=== PATIENT | male | born 1960 | race Caucasian/White ===

== ENCOUNTER 2023-11-12 10:54 | Emergency (ER) | payer OTHER ==
[2023-11-12 11:00] VITALS: BP 151/66; PULSE 77; RESP 16; TEMP 97.6; BMI 24.1
[2023-11-12] MEDS ORDERED: predniSONE 20 MG TABLET (UD) ONE (12:24)
[2023-11-12] MEDS ORDERED: ACETAMINOPHEN 325 MG TABLET (FP) ONE (12:24)
[2023-11-12] MEDS: predniSONE 20 MG TABLET (UD) PO ONE (12:32)
[2023-11-12] MEDS: ACETAMINOPHEN 500 MG TABLET (FP) PO ONE (12:32)
== END 2023-11-12 14:50 | disposition home or self-care (01) ==
LOC: JERFT 10:54 → JER 10:54
DX: M25.572 Pain in left ankle and joints of left foot (principal); M25.571 Pain in right ankle and joints of right foot; M25.551 Pain in right hip; M25.552 Pain in left hip; M25.561 Pain in right knee; M25.562 Pain in left knee; M25.472 Effusion, left ankle; Z20.822 Contact with and (suspected) exposure to COVID-19
CPT/HCPCS: 0241U-QW; 36415; 73610-TC-LT-FY; 73630-TC-LT; 86618; 99284-25